=== PATIENT | male | born 1990 | race American Indian/Alaskan Native ===

== ENCOUNTER 2018-12-28 10:40 | Emergency (ER) | payer SELFPAY ==
[2018-12-28] MEDS ORDERED: IBUPROFEN 800 MG TAB PO ONE (12:15)
[2018-12-28] MEDS ORDERED: CLINDAMYCIN 300 MG CAP PO ONE (12:15)
--- NOTE | 2018-12-28 12:16 | Emergency Department Report ---
Abscess Boil HPI - HPI Chief Complaint: Medical Clearance Stated Complaint: SKIN RASH Time Seen by Provider: 12/28/18 12:05 Duration: 5 Days Location: Back Severity: Moderate History: Yes Pain, Yes Purulent Drainage, Yes Previous History, No Fever, No Numbness, No Foreign Body, No Insect Bite HPI: This is a 28-year-old male who presents with a history of hidradenitis supura vivi reasons complaining of a flareup of adenitis to his groin and buttock area and facial area, patient states that this is his third one this year. Patient states that he is recently moved here from [place] and has not had a primary care physician here. Patient denies fever chills nausea vomiting. Home Medications: Previous Rx's Medication Instructions Recorded Last Taken Type Clindamycin [Clindamycin CAP] 300 mg PO TID #21 capsule 12/28/18 Unknown Rx Ibuprofen [Motrin 800 MG tab] 800 mg PO TID #30 tablet 12/28/18 Unknown Rx Sulfamethoxazole/Trimethoprim 1 each PO BID #20 tablet 12/28/18 Unknown Rx [Bactrim 400-80 mg Tablet] Allergies/Adverse Reactions: Allergies Allergy/AdvReac Type Severity Reaction Status Date / Time No Known Allergies Allergy Unverified 12/28/18 10:54 ED Review of Systems ROS: Stated complaint: SKIN RASH Other details as noted in HPI Comment: All other systems reviewed and negative ED Past Medical Hx - Past Medical History Previous Medical History?: Yes Additional medical history: HIDRADENITIS SUPPURATIVA - Surgical History Past Surgical History?: No - Social History Smoking Status: Never Smoker Substance Use Type: None - Medications Home Medications: Home Medications Medication Instructions Recorded Confirmed Last Taken Type Clindamycin [Clindamycin CAP] 300 mg PO TID #21 capsule 12/28/18 Unknown Rx Ibuprofen [Motrin 800 MG tab] 800 mg PO TID #30 tablet 12/28/18 Unknown Rx Sulfamethoxazole/Trimethoprim 1 each PO BID #20 tablet 12/28/18 Unknown Rx [Bactrim 400-80 mg Tablet] ED Abscess Boil Physical Exam - Exam General: Vital signs noted. No distress. Alert and acting appropriately. Size: 1 cm Exam: Yes Tenderness, Yes Surrounding Cellulites/Erythema, Yes Normal Neurologic Exam, Yes Normal Circulation, No Fluctuance, No Lymphangitis, No Crepitation, No Heart Murmur Exam: Multiple ropelike tender draining lesions and buttock and groin area. ED Course Vital Signs 12/28/18 10:54 Temperature 98.2 F Pulse Rate 101 H Respiratory 18 Rate Blood Pressure 134/92 O2 Sat by Pulse 100 Oximetry Critical care attestation.: If time is entered above; I have spent that time in minutes in the direct care of this critically ill patient, excluding procedure time. ED Medical Decision Making - Medical Decision Making 28-year-old male presents with at bedtime. Patient receives clindamycin and pain medicine in the ER. Discuss heat compression 3 times a day. Discussed clindamycin and Bactrim for the next week. Discussed follow-up with primary care physician. Referrals given. Vital signs are normal patient is in no acute distress. ED Disposition Clinical Impression: Hidradenitis suppurativa Disposition: TO HOME OR SELFCARE Is pt being admited?: No Does the pt Need Aspirin: No Condition: Stable Instructions: Adenitis (ED) Additional Instructions: Make sure to follow up with the primary care physician as discussed. Take all your medications as you've been prescribed. If you have any worsening symptoms or develop new symptoms please return to ED immediately. Prescriptions: Sulfamethoxazole/Trimethoprim [Bactrim 400-80 mg Tablet] 1 each PO BID #20 tablet Clindamycin [Clindamycin CAP] 300 mg PO TID #21 capsule Ibuprofen [Motrin 800 MG tab] 800 mg PO TID #30 tablet Referrals: [facility] [Outside] - 3-5 Days [facility] [Outside] - 3-5 Days Forms: Accompanied Note, Work/School Release Form(ED) Time of Disposition: 12:55
[2018-12-28 13:14] VITALS: BP 130/90
== END 2018-12-28 13:10 | disposition home or self-care (01) ==
LOC: ED 10:40
DX: L73.2 Hidradenitis suppurativa (principal)
CPT/HCPCS: 99282